=== PATIENT | female | born 1990 | race Caucasian/White ===

== ENCOUNTER 2016-10-06 12:45 | Emergency (ER) | payer SELFPAY ==
[~2016-10-06] VITALS: Ht 157.5 cm; Wt 63.0 kg
[2016-10-06 12:51] VITALS: BP 106/61
== END 2016-10-06 18:35 | disposition left against medical advice (07) ==
LOC: ER 18:33
DX: O26.891 Other specified pregnancy related conditions, first trimester (principal); Z3A.08 8 weeks gestation of pregnancy; Z53.21 Procedure and treatment not carried out due to patient leaving prior to being seen by health care provider